=== PATIENT | male | born 1960 | race Caucasian/White ===

== ENCOUNTER 2022-04-19 10:19 | Day surgery (SDC) | payer MEDICARE ==
[2022-04-19] MEDS ORDERED: Depo-Medrol 40 MG/ML IM ONE (10:20)
[2022-04-19] MEDS ORDERED: Xylocaine 1% Vial 30 ML PF IJ ONE (10:20)
[2022-04-19] MEDS ORDERED: Lactated Ringers 1,000 ML IV ONE (14:03)
[2022-04-19] MEDS ORDERED: DIPRIVAN 200 MG/20 ML IV ONE ×2 (14:08→14:17)
--- NOTE | 2022-04-19 16:40 | XRAY ---
Indication: Bilateral L4-S1 MBB. Intraoperative fluoroscopy provided for 1 minute 5 seconds. 3 digital spot image submitted for interpretation demonstrates posterior needle tips projecting over the expected left and right L4-S1 nerve roots. Correlate with intraoperative findings/report. Incidental bilateral L4-S1 posterior fusion hardware.
--- NOTE | 2022-04-19 16:49 | XRAY ---
1 minute and 5 seconds fluoroscopy time in surgery for bilateral L4-S1 MBB.
== END 2022-04-19 14:45 | disposition home or self-care (01) ==
LOC: SDC-PAIN 10:19
PROVIDERS: ATTEND Psychiatry & Neurology Pain Medicine
DX: M47.816 Spondylosis without myelopathy or radiculopathy, lumbar region (principal); Z79.899 Other long term (current) drug therapy
CPT/HCPCS: 64493; 64494; 72020; 77002; J1030; J2001; J2704

== ENCOUNTER → 2022-06-07 | Day surgery (SDC) | payer MEDICARE | LOC: SDC-PAIN 14:40 | PROVIDERS: ATTEND Psychiatry & Neurology Pain Medicine | DX: Z53.9 Procedure and treatment not carried out, unspecified reason (principal) ==

== ENCOUNTER 2022-08-02 09:47 | Day surgery (SDC) | payer MEDICARE ==
[2022-08-02] MEDS ORDERED: BUPIVACAINE 0.5% VIAL IJ ONE (09:48)
[2022-08-02] MEDS ORDERED: Pepcid 20 MG VIAL IV ONE (10:15)
[2022-08-02] MEDS ORDERED: Reglan 10 MG/2 ML ONE (10:15)
[2022-08-02] MEDS ORDERED: PROVENTIL 2.5 MG/3 ML NEB IH ONE ×2 (10:15→10:19)
[2022-08-02 10:23] VITALS: PULSE 89; O2SAT 94
[2022-08-02] MEDS ORDERED: DIPRIVAN 200 MG/20 ML IV ONE ×2 (11:31)
--- NOTE | 2022-08-02 12:15 | XRAY ---
Indication: Bilateral L4-S1 MBB. Intraoperative fluoroscopy provided for 50 seconds. Single digital spot images submitted for interpretation demonstrates posterior needle tips projecting over the expected left and right L4-S1 nerve roots. Correlate with intraoperative findings/report. Incidental bilateral L4-S1 posterior fusion hardware.
--- NOTE | 2022-08-02 12:17 | XRAY ---
50 seconds of fluoroscopy was used in surgery for a bilateral L4-S1 MBB.
[2022-08-02] MEDS ORDERED: Lactated Ringers 1,000 ML IV ONE (14:02)
== END 2022-08-02 12:00 | disposition home or self-care (01) ==
LOC: SDC-PAIN 09:47
PROVIDERS: ATTEND Psychiatry & Neurology Pain Medicine
DX: M47.816 Spondylosis without myelopathy or radiculopathy, lumbar region (principal); Z79.899 Other long term (current) drug therapy
CPT/HCPCS: 64493; 64494; 72020; 77002; 94640; J2704; J7609; A9270-GY